=== PATIENT | female | born 1995 | race Two or more races ===

== ENCOUNTER 2018-07-13 13:10 | Emergency (ER) | payer OTHER, MEDICAID ==
[~2018-07-13] VITALS: Ht 154.9 cm; Wt 115.7 kg
[2018-07-13 13:17] VITALS: BP 152/98
[2018-07-13] MEDS ORDERED: HYDROcodone/APAP 5/325 TABLET ONE (13:52)
[2018-07-13] MEDS ORDERED: HYDROcodone/APAP 5/325 TABLET PO ONE (14:00)
[2018-07-13] MEDS ORDERED: CEFAZOLIN 1,000 MG IM ONE (14:00)
[2018-07-13] MEDS ORDERED: CETACAINE 50ML TP ONE (14:00)
[2018-07-13] MEDS ORDERED: BENZOCAINE AEROSOL SPRAY 20%, 60ML ONE (14:10)
[2018-07-13] MEDS ORDERED: CEFAZOLIN 1,000 MG ONE (14:11)
[2018-07-13 14:31] LABS: ALBUMIN 3.1 g/dL (3.4-5.0); ANION GAP 11 mmol/L (5-15); CALCIUM 8.4 mg/dL (8.5-10.1); CHLORIDE 106 mmol/L (98-107); CREATININE 0.71 mg/dL (0.55-1.02)
[2018-07-13 14:36] LABS: BASOPHILS # (AUTO) 0.05 x10^3/uL (0-0.1); BASOPHILS % (AUTO) 0 % (0-1); EOSINOPHILS # (AUTO) 0.06 x10^3/uL (0-0.4); EOSINOPHILS % (AUTO) 1 % (1-7); LYMPHOCYTES # (AUTO) 3.07 x10^3/uL (1-3.4); LYMPHOCYTES % (AUTO) 27 % (22-44); MD NO; MEAN CORPUSCULAR HGB CONC 33.5 g/dL (32.4-35.8); MEAN CORPUSCULAR VOLUME 80.4 fL (80-100); MEAN PLATELET VOLUME 10.1 fL (7.4-10.4); MONOCYTES # (AUTO) 0.51 x10^3/uL (0.2-0.8); MONOCYTES % (AUTO) 5 % (2-9); NEUTROPHILS # (AUTO) 7.66 x10^3/uL (1.8-6.8); NEUTROPHILS % (AUTO) 68 % (42-75); PLATELET COUNT 333 x10^3/uL (130-400); RED BLOOD COUNT 5.65 x10^6/uL (3.82-5.3); RED CELL DISTRIBUTION WIDTH 15.7 % (9.6-15.2)
[2018-07-13 14:58] LABS: MICROSCOPIC NOT IND
[2018-07-13 14:59] LABS: ACETONE, URINE Large (80mg/dL) (Negative); CULTURE INDICATED? NO
== END 2018-07-13 15:02 | disposition home or self-care (01) ==
LOC: ED 13:51
DX: L03.032 Cellulitis of left toe (principal); I10 Essential (primary) hypertension; E10.65 Type 1 diabetes mellitus with hyperglycemia
CPT/HCPCS: 10060; 36415; 73630; 80048; 81003; 82009; 82040; 82800; 85025; 96372; 99285; J0690